=== PATIENT | female | born 1970 | race Caucasian/White ===

== ENCOUNTER 2017-12-10 23:43 | Observation (INO) ==
[2017-12-11 00:03] LABS: Basophils % 0.4 % (0.1-2.0); Eosinophils # 0.1 K/mm3 (0.0-0.4); Eosinophils % 1.7 % (0.1-12.0); Hemoglobin 12.9 g/dL (12.2-16.2); Lymphocytes % 48.8 K/mm3 (10-50); Mean Corpuscular HGB Conc 35.9 g/dL (31.8-35.4); Mean Corpuscular Hemoglobin 30.6 pg (27.0-31.2); Mean Corpuscular Volume 85.2 fl (81-99); Mean Platelet Volume 7.7 fl (7.4-10.4); Monocytes # 0.4 K/mm3 (0.1-1.0); Monocytes % 6.3 % (1.7-9.3); Neutrophils # 2.6 K/mm3 (1.8-7.8); Neutrophils % 42.8 % (37.0-80.0); Platelet Count 207 K/mm3 (142-424); Red Blood Count 4.22 M/mm3 (4.20-5.40); Red Cell Distribution Width 12.8 % (11.5-17.5); White Blood Count 6.1 K/mm3 (4.8-10.8)
[2017-12-11 00:31] LABS: Anion Gap 9.8 mEq/L (5-15); Blood Urea Nitrogen 16 mg/dL (7-18); Calcium 8.9 mg/dL (8.5-10.1); Carbon Dioxide 29 mmol/L (21.0-32.0); Chloride 103 mmol/L (98-107); Glucose 95 mg/dL (74-106); Potassium 3.8 mmoL/L (3.5-5.1); Sodium 138 mmol/L (136-145)
--- NOTE | 2017-12-11 00:43 | Emergency Department Note ---
ED Disposition Clinical Impression: Chest pain Qualifiers: Chest pain type: precordial pain Qualified Code(s): R07.2 - Precordial pain Disposition: Admitted as Observation Condition on Discharge: Good - Critical Care Critical Care Time: No Attestation: On 12/10/17, the high probability of a clinically significant, sudden or life threatening deterioration of the following system(s) required my full and direct attention, intervention and personal management. The time I documented below is in addition to time spent performing reported procedures but includes the following listed in this critical care notation. Medical Decision Making - Medical Records Medical records reviewed: Yes: I reviewed the patient's medical records. - Kumar Inquiry Pt receiving controlled substance: No Vital Signs: 12/10/17 23:44 12/11/17 00:43 Temperature 98 F Temperature Source Oral Pulse Rate [Right Radial] 89 70 Respiratory Rate 20 12 Blood Pressure [Right Arm] 153/85 112/90 Blood Pressure Mean [Right Arm] 107 97 Blood Pressure Source [Right Arm] Automatic Cuff Blood Pressure Position [Right Arm] Supine 02 Sat by Pulse Oximetry 99 93 L Oxygen Delivery Method Room Air - Lab Data Lab results reviewed: Yes: I reviewed the patient's lab results. Lab Results 12/10/17 23:55: WBC 6.1, RBC 4.22, Hgb 12.9, Hct 36.0 L, MCV 85.2, MCH 30.6, MCHC 35.9 H, RDW 12.8, Plt Count 207, MPV 7.7, Neut % (Auto) 42.8, Lymph % (Auto ) 48.8, [place] % (Auto) 6.3, Eos % (Auto) 1.7, Baso % (Auto) 0.4, Neut # (Auto) 2.6, Lymph # (Auto) 3.0, [place] # (Auto) 0.4, Eos # (Auto) 0.1, Baso # (Auto) 0.0 12/10/17 23:55: Sodium 138, Potassium 3.8, Chloride 103, Carbon Dioxide 29, Anion Gap 9.8, BUN 16, Creatinine 0.83, Estimated Creat Clear 129, Estimated GFR 74, Est GFR ( Amer) 90, Glucose 95, Calcium 8.9, Troponin I < 0.02 12/10/17 23:55: D-Dimer < 100 Result diagrams: 12/10/17 23:55 12/10/17 23:55 Orders (Tests/Meds): ED MEDICATIONS Discontinued Medications Generic Name Dose Route Start Last Admin Trade Name Arti CORCORAN Reason Stop Dose Admin Aspirin 324 mg 12/10/17 23:50 12/10/17 23:51 Aspirin 81mg Chewable Tablet PO 12/10/17 23:51 324 mg ONCE ONE Administration Famotidine 20 mg 12/10/17 23:50 12/10/17 23:51 Pepcid 20mg/2ml Vial IV 12/10/17 23:51 20 mg ONCE ONE Administration Metoclopramide HCl 10 mg 12/10/17 23:50 12/10/17 23:51 Reglan 10mg/2ml Vial IVP 12/10/17 23:51 10 mg ONCE ONE Administration ORDERS Category Date Time Status XR chest 2V Stat Exams 12/11/17 Taken - Radiology Data #1 Image(s): Chest Image Reviewed: Yes I reviewed the patient's radiology image Preliminary Findings: Normal/NAD - ECG Data Tracing #1 I reviewed this ECG and interpreted as documented below: Normal Sinus Rhythm: Yes Ischemic changes: non-specific ST-T wave changes Chest Pain HPI - General Chief Complaint: Chest Pain Stated Complaint: CHEST PAIN Time Seen by Provider: 12/11/17 00:42 Mode of Arrival: Ambulatory Source of Information: Patient, Spouse, Medical Record Limitations: No Limitations Description of Symptoms (Recalled from ER Triage Doc. by RN): PT BEGAN HAVING CHEST PAINS THAT BEGAN AT APPROX 2200 TONIGHT. PT STATES IT BEGAN IN HER MID CHEST AND RADIATES INTO RIGHT SIDE OF NECK AND RIGHT SHOULDER BLADE. PT ALSO WITH C/O NAUSEA. PT STATES SHE TOOK TUMS AT HOME WITH NO RELIEF. - History of Present Illness HPI narrative: acute ant chest pain described as sharp with rad rt jaw MD complaint: chest pain indicative of cardiac Onset (ago): hour(s) Duration: now resolved Activity at onset: during rest Pain location: substernal Severity: moderate Quality: sharp Pain radiation: jaw/teeth Relieving factors: nothing Exacerbating factors: nothing Risk Factors for CAD: Family Hx of CAD Treatments prior to or on arrival for Cardiac Chest Pain: none - RENATA Score Non-Stemi Age of patient: Less than 65 yrs Number of risk factors for CAD: Presence of less than 3 Prior coronary artery stenosis(seen in coronary angiography): Less than 50% ST-Segment deviation on ECG (more than 1 min): Absent Prior aspirin intake: No ASA in the last 7 days Severe anginal chest pain: No or one episode in last 24 hours Elevated cardiac markers(CK-MB or troponin): Absent Non-Stemi Risk Score: 0 - Related Data Home Medications Medication Instructions Recorded Confirmed Fluoxetine HCl [Prozac 20mg 40 mg PO DAILY 12/10/17 12/10/17 Capsule] Allergies Allergy/AdvReac Type Severity Reaction Status Date / Time No Known Allergies Allergy Verified 12/10/17 23:49 [facility] History I have reviewed the patient's past medical history: Yes Medical History: Denies:: Cancer, Diabetes Mellitus Type 1, Diabetes Mellitus Type 2, MRSA Amputation: No Fractures: No - Social History Smoking Status: Never smoker Alcohol Intake: never - Psychiatric History Expresses thoughts of harming self/others: None Suicide Plan Description: No Plan ROS Obtained: Yes All systems reviewed & no additional complaints - Constitutional Constitutional: Denies fever(s) - Eyes Eyes: Denies change in vision - ENT Ears, Nose, Mouth, and Throat: Denies sore throat - Cardiovascular Cardiovascular: Reports chest pain, Denies dyspnea, Reports radiating jaw, neck or arm pain - Respiratory Respiratory: No cough - Gastrointestinal Gastrointestingal: Denies: abdominal pain - Genitourinary Female Genitourinary: Denies flank pain - Musculoskeletal Musculoskeletal: Denies joint pain, Denies joint swelling - Integumentary/Breasts Skin/Breast: Denies rash - Neurologic Neurologic: Denies headache(s), Denies seizure-like activity Physical Exam - General General appearance: alert, in no apparent distress - Head Head exam: normocephalic - Eye Eye exam: Present: PERRL, EOMI - Neck Neck exam: Present: trachea midline - Chest Chest inspection: Present: normal inspection - Respiratory Respiratory exam: Present: normal lung sounds bilaterally. Absent: respiratory distress - Cardiovascular Cardiovascular exam: Present: regular rate, systolic murmur. Absent: rubs, gallop - Abdominal Exam Abdominal exam: Present: soft - Extremities Exam Extremities exam: Absent: calf tenderness - Neurological Exam Neurological exam: Present: alert, oriented X3, CN II-XII intact - Psychiatric Psychiatric exam: Present: normal affect - Skin Skin exam: Absent: rash
[2017-12-11 06:07] LABS: Basophils % 0.3 % (0.1-2.0); Eosinophils # 0.1 K/mm3 (0.0-0.4); Eosinophils % 2.5 % (0.1-12.0); Hematocrit 37.1 % (37.0-47.0); Lymphocytes # 2.3 K/mm3 (0.7-4.5); Lymphocytes % 48.6 K/mm3 (10-50); Mean Corpuscular HGB Conc 32.5 g/dL (31.8-35.4); Mean Corpuscular Hemoglobin 27.8 pg (27.0-31.2); Mean Corpuscular Volume 85.6 fl (81-99); Mean Platelet Volume 7.7 fl (7.4-10.4); Monocytes # 0.3 K/mm3 (0.1-1.0); Monocytes % 5.7 % (1.7-9.3); Neutrophils % 42.9 % (37.0-80.0); Platelet Count 184 K/mm3 (142-424); Red Blood Count 4.33 M/mm3 (4.20-5.40); Red Cell Distribution Width 12.7 % (11.5-17.5); White Blood Count 4.8 K/mm3 (4.8-10.8)
[2017-12-11 06:16] LABS: Blood Urea Nitrogen 14 mg/dL (7-18); Calcium 8.7 mg/dL (8.5-10.1); Carbon Dioxide 29 mmol/L (21.0-32.0); Chloride 105 mmol/L (98-107); Chol/HDL Ratio 4.1 (1-3.5); Cholesterol 160 mg/dL (140-200); Glucose 95 mg/dL (74-106); HDL Cholesterol 39 mg/dL (29-89); LDL Cholesterol 97 mg/dL (0-130); Sodium 139 mmol/L (136-145); Triglycerides 118 mg/dL (30-200); VLDL Cholesterol 24 mg/dL (0-40)
--- NOTE | 2017-12-11 08:51 | H&P/Discharge Summary ---
General - General Admission date:: 12/11/17 Discharge date: 12/11/17 *Admission Date: 12/10/17 *Chief complaint: chest pain *History of present illness: this wf with acute chest pain last pm [place] ant chest pain described as sharp with rad rt jaw - pt was seen in the ed and because of clinical presentation was admitted for serial enz [facility] History I have reviewed the patient's past medical history: Yes Medical History: Denies:: Cancer, Diabetes Mellitus Type 1, Diabetes Mellitus Type 2, MRSA Other Surgeries: Yes: , Hysterectomy-Partial Amputation: No Fractures: No - *Social History Educational Level: Completed College Smoking Status: Never smoker Alcohol Intake: never Occupational Status: employed Housing: house Household Members: spouse, children - Psychiatric History Expresses thoughts of harming self/others: None Suicide Plan Description: No Plan *Family Hx:: Cancer, Diabetes Review of Systems - Review of Systems Review of systems:: pertinent systems reviewed and negative unless documented below - Constitutional Denies fever(s) - Eyes Denies change in vision - ENT Denies sinus pain - *Cardiovascular Reports chest pain, Reports radiating jaw, neck or arm pain - *Respiratory Denies cough - *Gastrointestinal Denies abdominal pain - *Genitourinary Denies blood in urine - *Musculoskeletal Denies joint pain, Denies joint swelling - Integumentary/Breasts Denies rash - *Neurologic Denies headache(s), Denies seizure-like activity - Psychiatric Denies anxiety Exam Vital signs and Labs for Last 24 Hours: Temp Pulse Resp BP Pulse Ox 97.8 F 74 18 120/70 97 12/11/17 04:00 12/11/17 04:00 12/11/17 04:00 12/11/17 04:00 12/11/17 04:00 Laboratory Results - last 24 hr 12/10/17 23:55: WBC 6.1, RBC 4.22, Hgb 12.9, Hct 36.0 L, MCV 85.2, MCH 30.6, MCHC 35.9 H, RDW 12.8, Plt Count 207, MPV 7.7, Neut % (Auto) 42.8, Lymph % (Auto ) 48.8, [place] % (Auto) 6.3, Eos % (Auto) 1.7, Baso % (Auto) 0.4, Neut # (Auto) 2.6, Lymph # (Auto) 3.0, [place] # (Auto) 0.4, Eos # (Auto) 0.1, Baso # (Auto) 0.0 12/10/17 23:55: Sodium 138, Potassium 3.8, Chloride 103, Carbon Dioxide 29, Anion Gap 9.8, BUN 16, Creatinine 0.83, Estimated Creat Clear 129, Estimated GFR 74, Est GFR ( Amer) 90, Glucose 95, Calcium 8.9, Troponin I < 0.02 12/10/17 23:55: D-Dimer < 100 12/11/17 02:35: Troponin I < 0.02 12/11/17 05:35: Sodium 139, Potassium 4.0, Chloride 105, Carbon Dioxide 29, Anion Gap 9.0, BUN 14, Creatinine 0.76, Estimated Creat Clear 144, Estimated GFR 82, Est GFR ( Amer) 99, Glucose 95, Calcium 8.7, Troponin I < 0.02, Triglycerides 118, Cholesterol 160, LDL Cholesterol 97, VLDL Cholesterol 24, HDL Cholesterol 39, Cholesterol/HDL Ratio 4.1 H 12/11/17 05:35: WBC 4.8, RBC 4.33, Hgb 12.0 L, Hct 37.1, MCV 85.6, MCH 27.8, MCHC 32.5, RDW 12.7, Plt Count 184, MPV 7.7, Neut % (Auto) 42.9, Lymph % (Auto) 48.6, [place] % (Auto) 5.7, Eos % (Auto) 2.5, Baso % (Auto) 0.3, Neut # (Auto) 2.0 , Lymph # (Auto) 2.3, [place] # (Auto) 0.3, Eos # (Auto) 0.1, Baso # (Auto) 0.0 I & O for Last 24 hours: Intake & Output 12/08/17 12/09/17 12/10/17 12/11/17 11:59 11:59 11:59 11:59 Intake Total 350 / 350 Balance 350 / 350 Weight 217 lb - Constitutional no acute distress - *Routine HEENT Exam Head: Present: normocephalic Eye: Present: EOMI, PERRL ENT: Present: mucous membranes dry - *Routine Neck Exam Present: supple - *Routine Respiratory Exam Present: CTA bilaterally - *Routine Cardiovascular Exam Present: RRR, murmur. Absent: gallop, rubs - *Routine Abdominal Exam Present: soft. Absent: tenderness - *Routine Extremities Exam Present: full ROM - *Routine Skin Exam Present: intact - *Routine Neurological Exam Present: alert, oriented X3, CN II-XII intact - Routine Psychiatric Exam Present: normal affect Hospital Course Hospital Course: no more pain episodes and had neg serial enz with stable cxr and will be d/c to see dr hernandez next week and see pcp Results Labs on day of discharge: Labs from last 24 hours 12/11/17 12/11/17 12/11/17 05:35 05:35 02:35 WBC 4.8 RBC 4.33 Hgb 12.0 L Hct 37.1 MCV 85.6 MCH 27.8 MCHC 32.5 RDW 12.7 Plt Count 184 MPV 7.7 Neut % (Auto) 42.9 Lymph % (Auto) 48.6 [place] % (Auto) 5.7 Eos % (Auto) 2.5 Baso % (Auto) 0.3 Neut # (Auto) 2.0 Lymph # (Auto) 2.3 [place] # (Auto) 0.3 Eos # (Auto) 0.1 Baso # (Auto) 0.0 D-Dimer Sodium 139 Potassium 4.0 Chloride 105 Carbon Dioxide 29 Anion Gap 9.0 BUN 14 Creatinine 0.76 Estimated Creat Clear 144 Estimated GFR 82 Est GFR ( Amer) 99 Glucose 95 Calcium 8.7 Troponin I < 0.02 < 0.02 Triglycerides 118 Cholesterol 160 LDL Cholesterol 97 VLDL Cholesterol 24 HDL Cholesterol 39 Cholesterol/HDL Ratio 4.1 H 12/10/17 12/10/17 12/10/17 23:55 23:55 23:55 WBC 6.1 RBC 4.22 Hgb 12.9 Hct 36.0 L MCV 85.2 MCH 30.6 MCHC 35.9 H RDW 12.8 Plt Count 207 MPV 7.7 Neut % (Auto) 42.8 Lymph % (Auto) 48.8 [place] % (Auto) 6.3 Eos % (Auto) 1.7 Baso % (Auto) 0.4 Neut # (Auto) 2.6 Lymph # (Auto) 3.0 [place] # (Auto) 0.4 Eos # (Auto) 0.1 Baso # (Auto) 0.0 D-Dimer < 100 Sodium 138 Potassium 3.8 Chloride 103 Carbon Dioxide 29 Anion Gap 9.8 BUN 16 Creatinine 0.83 Estimated Creat Clear 129 Estimated GFR 74 Est GFR ( Amer) 90 Glucose 95 Calcium 8.9 Troponin I < 0.02 Triglycerides Cholesterol LDL Cholesterol VLDL Cholesterol HDL Cholesterol Cholesterol/HDL Ratio DS: Diagnosis - Discharge Diagnosis (1) Chest pain Status: Acute Discharge Medications Discharge Medications: Home Medications Medication Instructions Recorded Confirmed Type Fluoxetine HCl [Prozac 20mg 40 mg PO DAILY 12/10/17 12/10/17 History Capsule] Disposition Disposition: Home, Self-Care
== END 2017-12-11 09:45 | disposition home or self-care (01) ==
LOC: 2ND 23:43 → ER 23:43 → 2ND 12-11 02:26
PROVIDERS: ADMIT Emergency Medicine; ATTEND Emergency Medicine

== ENCOUNTER 2020-05-23 20:31 | Emergency (ER) | payer OTHER, SELFPAY ==
[2020-05-23 20:30] VITALS: BP 141/95; PULSE 119; RESP 18; TEMP 36.6; O2SAT 97; BMI 36.6
--- NOTE | 2020-05-23 20:32 | ECG_ITS ---
APPROVED REPORT Exam: Resting ECG HR:115 bpm ECG Measurements Heart Rate 115 AXES DC 142 P 25 QRSd 78 QRS 51 QT 328 T -8 QTc 453 Conclusion Sinus tachycardia Nonspecific T wave abnormality Abnormal ECG Electronically signed by : Karlos Montez, 05/24/2020 10:16:08
--- NOTE | 2020-05-23 20:37 | XR_ITS ---
PROCEDURE: XR CHEST 2V CLINICAL HISTORY: Palpitations COMPARISON: CR CXR CHEST(2 VIEWS-NOT PORTABLE) from 07/02/2014 CR CXR2V XR chest 2V from 12/11/2017 FINDINGS: The cardiomediastinal silhouette and pulmonary vascularity are within normal limits. The lungs are clear without infiltrates, suspicious nodules, or pleural effusions. There is calcified granuloma in the right midlung. IMPRESSION: No acute findings. Dictated by: Pal Sarkar MD 05/24/2020 04:45 Pal Sarkar MD in [place] 05/24/2020 04:45
[2020-05-23 20:43] LABS: Microscopic, Urine URINE MICROSCOPIC (MICROSCOPIC)
[2020-05-23 21:00] LABS: Basophils # 0.1 K/mm3 (0-0.2); Basophils % 0.6 % (0.1-2.0); Eosinophils # 0.1 K/mm3 (0.0-0.4); Eosinophils % 0.9 % (0.1-12.0); Hematocrit 46.1 % (37.0-47.0); Hemoglobin 15.3 g/dL (12.2-16.2); Lymphocytes # 2.6 K/mm3 (0.7-4.5); Lymphocytes % 28.9 % (10-50); Mean Corpuscular HGB Conc 33.1 g/dL (31.8-35.4); Mean Corpuscular Hemoglobin 28.5 pg (27.0-31.2); Mean Corpuscular Volume 86.1 fl (81-99); Mean Platelet Volume 7.9 fl (7.4-10.4); Monocytes # 0.5 K/mm3 (0.1-1.0); Monocytes % 5.6 % (1.7-9.3); Neutrophils # 5.7 K/mm3 (1.8-7.8); Neutrophils % 64.1 % (37.0-80.0); Platelet Count 279 K/mm3 (142-424); Red Blood Count 5.35 M/mm3 (4.20-5.40); Red Cell Distribution Width 13.7 % (11.5-17.5)
[2020-05-23 21:01] LABS: Chloride 104 mmol/L (98-107); Sodium 140 mmol/L (136-145)
[2020-05-23 21:02] LABS: Potassium 4.3 mmoL/L (3.5-5.1)
[2020-05-23 21:04] LABS: Alanine Aminotransferase 38 U/L (12-78); Alkaline Phosphatase 68 U/L (38-126); Anion Gap 14.3 mEq/L (5-15); Aspartate Amino Transferase 36 U/L (14-36); Bilirubin,Direct 0.1 mg/dl (0.0-0.4); Bilirubin,Indirect 0.3 mg/dL (0.0-0.9); Bilirubin,Total 0.4 mg/dl (0.2-1.3); Bilirubin,Unconjugated 0.3 mg/dL (0.0-1.1); Blood Urea Nitrogen 19 mg/dl (7-17); Calcium 10.4 mg/dl (8.4-10.2); Carbon Dioxide 26 mmol/L (22.0-30.0); Creatinine Clearance Estimated 155 mL/min (50-200); Estimated Glomerular Filt Rate 89 ml/min (>60); GFR (African American) 108 ML/MIN (>60); Glucose 119 mg/dl (74-100); Total Protein,Serum 8.5 g/dl (6.3-8.2)
[2020-05-23 21:04] LABS: Appearance,Urine CLEAR (Clear); Bilirubin,Urine Negative (Negative); Blood, Urine TRACE-I (Negative); Color,Urine YELLOW (Yellow); Glucose,Urine (UA) Negative (Negative); Ketones,Urine Negative (Negative); Leukocyte Esterase,Urine Negative (Negative); Nitrate,Urine Negative (Negative); PH,Urine 6.5 (5.0-8.5); Protein,Urine TRACE (Negative); Specific Gravity, Urine <= 1.005 (1.005-1.030); Urobilinogen,Urine 0.2 EU/dl (0.2)
[2020-05-23 21:05] LABS: Bacteria,Urine Trace /lpf
[2020-05-23 21:16] LABS: Troponin I 0.02 ng/ml (0.00-0.034)
[2020-05-23 21:18] LABS: Digoxin < 0.40 ng/ml (0.2-2.00)
--- NOTE | 2020-05-23 21:23 | [facility].EDARPALP ---
ED Disposition Clinical Impression: Supraventricular tachycardia Disposition: Home, Self-Care Condition on Discharge: Good Instructions: Paroxysmal Supraventricular Tachycardia Additional Instructions: call card in am Referrals: Bobbi Reyes [Primary Care Provider] - - Critical Care Critical Care Time: No Attestation: On 05/23/20, the high probability of a clinically significant, sudden or life threatening deterioration of the following system(s) required my full and direct attention, intervention and personal management. The time I documented below is in addition to time spent performing reported procedures but includes the following listed in this critical care notation. Medical Decision Making - Medical Records Medical records reviewed: Yes: I reviewed the patient's medical records. - Kumar Inquiry Pt receiving controlled substance: No Vital Signs: 05/23/20 20:30 Temperature 97.8 F Temperature Source Oral Pulse Rate [Left Radial] 119 H Respiratory Rate 18 Blood Pressure [Right Arm] 141/95 H Blood Pressure Mean [Right Arm] 110 Blood Pressure Source [Right Arm] Automatic Cuff Blood Pressure Position [Right Arm] Supine 02 Sat by Pulse Oximetry 97 Oxygen Delivery Method Room Air - Lab Data Lab results reviewed: Yes: I reviewed the patient's lab results. Lab Results 05/23/20 20:37: Urine Color Yellow, Urine Appearance Clear, Urine pH 6.5, Ur Specific [place] <= 1.005, Urine Protein Trace, Urine Glucose (UA) Negative, Urine Ketones Negative, Urine Blood Trace-i, Urine Nitrate Negative, Urine Bilirubin Negative, Urine Urobilinogen 0.2, Ur Leukocyte Esterase Negative, Urine WBC 3-5, Ur Squamous Epith Cells 5-10, Urine Bacteria Trace 05/23/20 20:40: WBC 9.0, RBC 5.35, Hgb 15.3, Hct 46.1, MCV 86.1, MCH 28.5, MCHC 33.1, RDW 13.7, Plt Count 279, MPV 7.9, Neut % (Auto) 64.1, Lymph % (Auto) 28.9, [place] % (Auto) 5.6, Eos % (Auto) 0.9, Baso % (Auto) 0.6, Neut # (Auto) 5.7, Lymph # (Auto) 2.6, [place] # (Auto) 0.5, Eos # (Auto) 0.1, Baso # (Auto) 0.1 12/03/20 20:40: Sodium 140, Potassium 4.3, Chloride 104, Carbon Dioxide 26, Anion Gap 14.3, BUN 19 H, Creatinine 0.70, Estimated Creat Clear 155, Estimated GFR 89, Est GFR ( Amer) 108, Glucose 119 H, Calcium 10.4 H, Total Bilirubin 0.4, Direct Bilirubin 0.1, Conjugated Bilirubin 0.0, Indirect Bilirubin 0.3, Unconjugated Bilirubin 0.3, AST 36, ALT 38, Alkaline Phosphatase 68, Troponin I 0.02, Total Protein 8.5 H, Albumin 5.0 05/23/20 20:40: Digoxin < 0.40 Result diagrams: 05/23/20 20:40 05/23/20 20:40 Orders (Tests/Meds): ORDERS Category Date Time Status XR chest 2V Stat Exams 05/23/20 20:37 Taken Troponin I Q3H Lab 05/23/20 23:45 Ordered Troponin I Q3H Lab 05/24/20 02:45 Ordered - Radiology Data #1 Image(s): Chest Image Reviewed: Yes I reviewed the patient's radiology image Preliminary Findings: Normal/NAD - ECG Data Tracing #1 Normal Sinus Rhythm: Yes Ischemic changes: non-specific ST-T wave changes - JANET Score for Non-Stemi Age of Patient: 40-49 years old Heart Rate: 110-149 bpm Systolic Blood Pressure: 140-159 mmHg Serum Creatinine: 0.40-0.79 mg/dl CHF [place] Class: I-No CHF Other Risk Factors: None Non-Stemi Risk Score: 77 Medical Decision Narrative: strips per ems were reviewed and showed psvt - responded to adenosine 12 mg - at baseline now Arrhythmia/Palpitations HPI - General Chief Complaint: Arrhythmia/Palpitations Stated Complaint: SVT Time Seen by Provider: 05/23/20 20:40 Mode of Arrival: EMS Source of Information: Patient, Relative, EMS, Medical Record Limitations: No Limitations - History of Present Illness HPI narrative: acute episode of tachycardia which pt has had in past and seen card and on dig and considering ablation MD complaint: rapid heart beat Onset (ago): hour(s) Duration: now resolved Severity: moderate Context: occurred during rest Arrhythmia history: SVT Associated symptoms: den
[2020-05-23 21:51] VITALS: BP 129/73; PULSE 100; RESP 19; TEMP 36.8; O2SAT 98
[2020-05-23 22:34] LABS: T4 (Thyroxine) 9.8 ug/dl (5.53-11.0)
[2020-05-23 22:48] LABS: Thyroid Stimulating Hormone 7.67 uIU/mL (0.465-4.68)
== END 2020-05-23 21:54 | disposition home or self-care (01) ==
PROVIDERS: Emergency Provider Emergency Medicine; PCP Nurse Practitioner Family
DX: I47.1 Supraventricular tachycardia (principal); F32.9 Major depressive disorder, single episode, unspecified; Z79.899 Other long term (current) drug therapy
CPT/HCPCS: 71046; 80048; 80076; 80162; 81001; 84436; 84443; 84484; 85025; 93005; 96365; 99282